=== PATIENT | female | born 1955 | race Caucasian/White ===

== ENCOUNTER 2022-03-31 11:59 | Day surgery (SDC) | payer MEDICARE, OTHER ==
[2022-03-31] MEDS ORDERED: XYLOCAINE-MPF 1% 5ML SDV IJ ONE (12:00)
[2022-03-31] MEDS ORDERED: Depo-Medrol 40 MG/ML IM ONE (12:00)
[2022-03-31] MEDS ORDERED: BUPIVACAINE 0.5% VIAL IJ ONE (12:00)
--- NOTE | 2022-03-31 14:38 | XRAY ---
Indication: Bilateral SI joint injection. Intraoperative fluoroscopy provided for 15 seconds. 4 digital spot image submitted for interpretation demonstrates posterior needle tip projecting over the left and right SI joint. Correlate with intraoperative findings/report.
--- NOTE | 2022-03-31 14:56 | XRAY ---
15 seconds of fluoroscopy was used in surgery for bilateral SI joint injections.
== END 2022-03-31 14:25 | disposition home or self-care (01) ==
LOC: SDC-PAIN 11:59
PROVIDERS: ATTEND Psychiatry & Neurology Pain Medicine
DX: M46.1 Sacroiliitis, not elsewhere classified (principal); Z79.899 Other long term (current) drug therapy
CPT/HCPCS: 27096; 72202; 77002; G0260; J1030